=== PATIENT | male | born 1955 | race Caucasian/White ===

== ENCOUNTER 2017-03-15 10:49 | Day surgery (SDC) | payer OTHER ==
[~2017-03-15] VITALS: Ht 193 cm; Wt 129.3 kg
[~2017-03-15 10:49] MED LIST: CAT3PAT TD; ENOX120D3 SUBCUT; HYDR100T25 PO; LABE200T28 PO; LOSA1TAB3 PO; MAGN400T10 PO; NOR10 PO; POTA40LI14 PO; SIMV20TA2 PO; SPIR25TA4 PO
[2017-03-15] MEDS ORDERED: SUCCINYLCHOLINE CHLORIDE 20 MG/ML(QUELICIN) IVP ONE (12:45)
[2017-03-15] MEDS ORDERED: fentaNYL CITRATE 250 MCG/5 ML AMP IV ONE (12:45)
[2017-03-15] MEDS ORDERED: BUPIVACAINE /EPINEPHRINE/PF 0.25% 30 ML VIAL INJ ONE (12:45)
[2017-03-15] MEDS ORDERED: PROPOFOL 200MG/ 20ML VIAL (DIPRIVAN) IV ONE (12:45)
[2017-03-15] MEDS ORDERED: WATER FOR IRRIGATION,STERILE 1,000 ML IRRIG.SOLN IR ONE (12:45)
[2017-03-15] MEDS ORDERED: CLINDAMYCIN PHOSPHATE 900 mg/50mL D5W IV ONE (12:45)
[2017-03-15] MEDS ORDERED: SEVOFLURANE 15 MIN GAS INH ONE (12:45)
[2017-03-15] MEDS ORDERED: MIVACURIUM CHLORIDE 20 MG/10 ML VIAL (MIVACRON) INJ ONE (12:45)
[2017-03-15] MEDS ORDERED: LR 1,000 ML IV.SOLN IV ONE (12:45)
[2017-03-15] MEDS ORDERED: POLYMYXIN 500,000/BACIT.10,000 UNITS in NS IRR 1 L IR ONE (12:56)
[2017-03-15] MEDS ORDERED: LR 1,000 ML IV SCH (13:54)
[2017-03-15] MEDS ORDERED: MORPHINE 4 MG/ML INJ. SYRINGE IVP PRN ×3 (14:00)
[2017-03-15] MEDS ORDERED: METOCLOPRAMIDE HCL 10 MG/2 ML VIAL IVP PRN (14:00)
[2017-03-15 15:49] VITALS: BP_SYST 154
== END 2017-03-15 17:20 | disposition home or self-care (01) ==
LOC: SDS 10:49 → SMU 10:50 → SDS 17:20
PROVIDERS: ATTEND Orthopaedic Surgery
DX: M22.01 Recurrent dislocation of patella, right knee (principal); Z98.890 Other specified postprocedural states; Z88.0 Allergy status to penicillin; E66.01 Morbid (severe) obesity due to excess calories; I10 Essential (primary) hypertension; G62.9 Polyneuropathy, unspecified; I49.9 Cardiac arrhythmia, unspecified
CPT/HCPCS: 27425; J0330; J2704; J3010; J3490 ×2; J7120